=== PATIENT | female | born 1950 | race African-American/Black ===

== ENCOUNTER 2022-10-13 14:10 | Emergency (ER) | payer OTHER ==
[2022-10-13 15:05] LABS: Absolute Lymphocytes (CBC) 1.2 K/uL (0.7-4.9); Hematocrit 42.8 % (36.0-45.0); Lymphocytes % 16.5 % (15.3-44.8); MCV 76.9 fL (80-100); MPV 7.6 fL (7.6-11.3); Platelets 280 thou/uL (152-406); RBC Red Blood Cell Count 5.56 M/uL (3.86-4.86)
[2022-10-13 15:16] LABS: Potassium 3.6 mEq/L (3.5-5.1)
[2022-10-13 15:43] LABS: Specific Gravity 1.012 (1.005-1.030); Urine Bacteria 20-50 /HPF (<20); Urine Bilirubin NEGATIVE (Negative); Urine Blood Negative (Negative); Urine Clarity Extremely Turbid (Clear); Urine Color Light-Yellow (Yellow); Urine Glucose 4+ (Over) (Negative); Urine Mucus Slight /HPF (None Seen); Urine Protein TRACE (Negative); Urine RBC <5 /HPF (None Seen); Urine Urobilinogen Normal (Normal); Urine WBC Clump Occasional /HPF (None Seen)
[2022-10-13 15:57] LABS: Blood Morphology Comment NOT SEEN (NOT SEEN); Platelet Estimate ADEQ; White Blood Cell Scan OK (OK)
[2022-10-13] MEDS ORDERED: SMZ./TMP. 800/160 MG TABLET ONE (16:32)
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
[2022-10-13 17:01] VITALS: O2SAT 100
[2022-10-13 17:02] VITALS: BP 128/67
== END 2022-10-13 16:57 | disposition home or self-care (01) ==
LOC: ER 14:10
DX: E16.2 Hypoglycemia, unspecified (principal); N39.0 Urinary tract infection, site not specified
CPT/HCPCS: 36415; 80048; 81001; 82947; 85025; 87086; 87088; 99284